=== PATIENT | male | born 1940 | race Caucasian/White ===

== ENCOUNTER → 2016-12-05 | Outpatient (CLI) | payer MEDICARE, OTHER ==
--- NOTE | 2016-12-05 09:09 | RAD ---
EXAM DESCRIPTION: XR PELVIS 1-2 VIEWS CLINICAL HISTORY: PAIN IN LEFT HIP COMPARISON: None Available. TECHNIQUE: AP pelvis FINDINGS: Minimal acetabular osteophyte formation is observed. A phlebolith is observed in the left side of the pelvis. No pelvic fracturing is observed. The proximal femurs are unremarkable. IMPRESSION: Minimal degenerative change is observed. Exam is essentially normal for age. Electronically signed by: Bobo Paulino MD 12/05/2016 09:08
--- NOTE | 2016-12-05 09:09 | RAD ---
EXAM DESCRIPTION: XR KNEE 4 OR MORE VIEWS CLINICAL HISTORY: PAIN IN LEFT KNEE COMPARISON: 30 November 2014. TECHNIQUE: Three views. FINDINGS: Marked loss of medial joint space is observed. 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 A small joint effusion is seen. No fracturing is detected. IMPRESSION: Degenerative changes are observed most pronounced in the medial joint compartment. The disease has progressed since the prior exam. Electronically signed by: Bobo Paulino MD 12/05/2016 09:08
== END ==
LOC: RAD 08:14
PROVIDERS: ATTEND Orthopaedic Surgery
DX: M25.562 Pain in left knee (principal); M25.552 Pain in left hip; M12.862 Other specific arthropathies, not elsewhere classified, left knee; M12.88 Other specific arthropathies, not elsewhere classified, other specified site

== ENCOUNTER → 2017-03-03 | Outpatient (CLI) | payer MEDICARE, OTHER | END | disposition home or self-care (01) | LOC: GMAB 14:42 | PROVIDERS: ATTEND Family Medicine | DX: N40.0 Benign prostatic hyperplasia without lower urinary tract symptoms (principal) ==

== ENCOUNTER → 2017-06-18 | Outpatient (CLI) | payer MEDICARE, OTHER | END | disposition home or self-care (01) | LOC: GMAB 10:48 | PROVIDERS: ATTEND Family Medicine | DX: Z12.5 Encounter for screening for malignant neoplasm of prostate (principal); R53.82 Chronic fatigue, unspecified; I10 Essential (primary) hypertension | CPT/HCPCS: 84403; 84443; 84550; G0103 ==

== ENCOUNTER → 2017-07-31 | Outpatient (CLI) | payer MEDICARE, OTHER | END | disposition home or self-care (01) | LOC: GMAB 10:58 | PROVIDERS: ATTEND Family Medicine | DX: R07.2 Precordial pain (principal) ==

== ENCOUNTER 2018-11-05 15:22 | Emergency (ER) | payer MEDICARE, OTHER ==
--- NOTE | 2018-11-05 15:45 | ED.PDOC ---
History of Present Illness - General Chief Complaint: Lower Extremity Injury Time Seen by Provider: 11/05/18 15:24 Source: patient Exam Limitations: no limitations - History of Present Illness Occurred: this morning Pain - Lower Extremity: mild: Left Knee Method of Injury: unknown Improving Factors: immobilization Worsening Factors: movement, other - WEIGHT BEARING Allergies/Adverse Reactions: Allergies Morphine Allergy (Verified 05/24/16 15:43) Vomitting Home Medications: Ambulatory Orders Atorvastatin Calcium [Lipitor] 40 mg PO BEDTIME 02/28/15 Enalapril Maleate 20 mg PO BID 02/28/15 Finasteride 5 mg PO DAILY 02/28/15 Metoprolol Succinate [Metoprolol Succinate ER] 50 mg PO DAILY 02/28/15 Tadalafil [Cialis] 5 mg PO DAILY 02/28/15 Alfuzosin HCl [Uroxatral] 10 mg PO DAILY 09/25/15 Aspirin [Aspirin EC] 81 mg PO DAILY 09/25/15 Colchicine [Colcrys] 0.6 mg PO DAILY PRN 09/25/15 Furosemide [Lasix] 20 mg PO DAILY PRN 09/25/15 Meloxicam [Mobic] 15 mg PO DAILY 09/25/15 Multiple Vitamins W/ Minerals [Multi For Him] 1 tab PO DAILY 09/25/15 Cambridge-3 Fatty Acids [Cambridge 3] 3 cap PO DAILY 09/25/15 Potassium Chloride [K-Tab] 10 meq PO DAILY PRN 09/25/15 cloNIDine HCL [Catapres] 0.1 mg PO BEDTIME 09/25/15 Cephalexin Monohydrate [Keflex] 500 mg PO QID #40 cap 05/24/16 Orphenadrine Citrate [Orphenadrine Citrate ER] 100 mg PO BID PRN #14 tab 11/05/18 Review of Systems - Review of Systems Constitutional: States: no symptoms reported EENTM: States: no symptoms reported Respiratory: Denies: cough, short of breath Cardiology: States: edema. Denies: chest pain Gastrointestinal/Abdominal: Denies: no symptoms reported Genitourinary: Denies: no symptoms reported Musculoskeletal: States: joint pain Skin: States: rash - has chronic rash to both lower legs distally. No erythema or tenderness Neurological: States: no symptoms reported Endocrine: States: no symptoms reported Hematologic/Lymphatic: States: no symptoms reported Past Medical History (General) - Patient Medical History Hx Stroke: No Hx Cardiac Disorders: Yes Hx Congestive Heart Failure: Yes Hx Hypertension: Yes Hx Diabetes: No Hx Cancer: No - Vaccination History Hx Tetanus, Diphtheria Vaccination: No Hx Influenza Vaccination: No Hx Pneumococcal Vaccination: No - Social History Hx Tobacco Use: No Hx Alcohol Use: Yes - Rarely Hx Substance Use: No Family Medical History - Family History Mother Family History: Unknown Living Status: Unknown Hx Family Cancer: Yes Physical Exam - Physical Exam General Appearance: Alert, No apparent distress Eyes, Ears, Nose, Throat: PERRL/EOMI Thigh/Hip: normal inspection, non-tender, normal ROM Leg: normal inspection, non-tender, normal ROM, swelling - 1 + edema to both distal legs Knee: normal inspection, normal ROM, soft tissue tenderness - popliteal fossa, minimal Ankle: normal inspection, non-tender, no evidence of injury Foot: normal inspection, non-tender, no evidence of injury Neuro/Tendon: normal sensation, normal motor functions Mental Status: alert, oriented x 3, depressed affect Skin: normal color, warm/dry, rash - eczemoid rash in patches distally in both lower legs Departure - Departure Clinical Impression: Hypovolemia dehydration Muscle strain of left lower leg Qualifiers: Encounter type: initial encounter Qualified Code(s): S86.912A - Strain of unspecified muscle(s) and tendon(s) at lower leg level, left leg, initial encounter Disposition: Discharge to Home or Self Care Condition: Fair Departure Forms: ED Discharge - Pt. Copy, Patient Portal Self Enrollment Instructions: DI for Leg Pain Referrals: OSIEL ANDREWS MD [Primary Care Provider] - 1-2 Weeks Prescriptions: Orphenadrine Citrate [Orphenadrine Citrate ER] 100 mg PO BID PRN #14 tab PRN Reason: Muscle Spasms Home Medications: Ambulatory Orders Atorvastatin Calcium [Lipitor] 40 mg PO BEDTIME 02/28/15 Enalapril Maleate 20 mg PO BID 02/28/15 Finasteride 5 mg PO DAILY 02/28/15 Metoprolol Succinate [Metoprolol Succinate ER] 50 mg PO DAILY 02/28/15 Tadalafil [Cialis] 5 mg PO DAILY 02/28/15 Alfuzosin HCl [Uroxatral] 10 mg PO DAILY 09/25/15 Aspirin [Aspirin EC] 81 mg PO DAILY 09/25/15 Colchicine [Colcrys] 0.6 mg PO DAILY PRN 09/25/15 Furosemide [Lasix] 20 mg PO DAILY PRN 09/25/15 Meloxicam [Mobic] 15 mg PO DAILY 09/25/15 Multiple Vitamins W/ Minerals [Multi For Him] 1 tab PO DAILY 09/25/15 Cambridge-3 Fatty Acids [Cambridge 3] 3 cap PO DAILY 09/25/15 Potassium Chloride [K-Tab] 10 meq PO DAILY PRN 09/25/15 cloNIDine HCL [Catapres] 0.1 mg PO BEDTIME 09/25/15 Cephalexin Monohydrate [Keflex] 500 mg PO QID #40 cap 05/24/16 Orphenadrine Citrate [Orphenadrine Citrate ER] 100 mg PO BID PRN #14 tab 11/05/18
[2018-11-05 15:54] VITALS: TEMP 99.5
[2018-11-05] MEDS ORDERED: SODIUM CHLORIDE 0.9% 1000ML 1,000 ML IVS ONE (16:30)
[2018-11-05 17:41] VITALS: BP 142/70; O2SAT 95
== END 2018-11-05 17:15 | disposition home or self-care (01) ==
LOC: ER 15:22
DX: S86.912A Strain of unspecified muscle(s) and tendon(s) at lower leg level, left leg, initial encounter (principal); E86.1 Hypovolemia; E86.0 Dehydration; I11.0 Hypertensive heart disease with heart failure; I50.9 Heart failure, unspecified; Z79.899 Other long term (current) drug therapy; Z79.82 Long term (current) use of aspirin; Z88.5 Allergy status to narcotic agent; X58.XXXA Exposure to other specified factors, initial encounter; Y92.9 Unspecified place or not applicable
CPT/HCPCS: 80053; 85025; J7030

== ENCOUNTER → 2019-06-21 | Outpatient (CLI) | payer MEDICARE, OTHER | LOC: LAB.O 10:00 | PROVIDERS: ATTEND Family Medicine | DX: Z00.00 Encounter for general adult medical examination without abnormal findings (principal); E78.5 Hyperlipidemia, unspecified; R53.83 Other fatigue; N40.1 Benign prostatic hyperplasia with lower urinary tract symptoms ==

== ENCOUNTER → 2020-01-17 | Outpatient (CLI) | payer MEDICARE, OTHER | DX: R06.02 Shortness of breath (principal); R06.09 Other forms of dyspnea; I10 Essential (primary) hypertension ==

== ENCOUNTER 2020-03-17 15:45 | Observation (INO) | payer MEDICARE, OTHER ==
[2020-03-17] MEDS ORDERED: SODIUM CHLORIDE 0.9% (FLUSH) 10 ML SYG IV PRN ×2 (15:49→23:05)
[2020-03-17] MEDS ORDERED: ASPIRIN (CHEWABLE) 81 MG TAB PO ONE ×2 (15:58→23:05)
--- NOTE | 2020-03-17 16:00 | ED.PDOC ---
History of Present Illness - General Chief Complaint: Chest Pain/NE Time Seen by Provider: 03/17/20 15:49 Source: patient - History of Present Illness Initial Comments: 79 yo male with PMH of HTN, CAD s/p stents who presents with cc of chest pain. Onset suddenly at home 45 mins ago at rest, located to right side of chest, "compression-like", constant, 4/10 severity at worst, radiated to Left arm, constant, slightly worse with exertion and little improvement at rest, accompanied by slight dyspnea. No meds tried for relief. Last NE was 1993, unsure if similar. Last had 3 stents 2 years ago at [facility] (Dr. Khan). Denies abd pain, n/v/d, diaphoresis, cough, fever, leg swelling. Currently pain is nearly fully resolved. Pt reports starting a course of prednisone 60 mg daily yesterday Rx'd by his PCP (Dr. Sargent) for knee pain. Allergies/Adverse Reactions: Allergies Morphine Allergy (Verified 03/17/20 16:07) Vomitting Home Medications: Ambulatory Orders Atorvastatin Calcium [Lipitor] 40 mg PO BEDTIME 02/28/15 Enalapril Maleate 20 mg PO BID 02/28/15 Finasteride 5 mg PO DAILY 02/28/15 Aspirin [Aspirin EC] 81 mg PO DAILY 09/25/15 Meloxicam [Mobic] 15 mg PO DAILYBK 09/25/15 Amlodipine Besylate 10 mg PO DAILY 03/17/20 Carvedilol [Coreg] 12.5 mg PO BID 03/17/20 Clopidogrel 75mg 75 mg PO DAILY 03/17/20 Famotidine [Pepcid Tab] 20 mg PO BID 03/17/20 Fluticasone Propionate (Nasal) [Fluticasone Propionate] 1 spray NA BEDTIME 03/17/20 Isosorbide Mononitrate [Isosorbide Mononitrate ER] 30 mg PO DAILY 03/17/20 Methylprednisolone [Medrol Dose Dung] 4 mg PO ACBK 03/17/20 Methylprednisolone [Medrol Dose Dung] 8 mg PO ONCE 03/17/20 Spironolactone 25 mg PO DAILY 03/17/20 hydrALAZINE HCl [(None)] 50 mg PO BID 03/17/20 Review of Systems - Review of Systems Review of Systems: 05/09/20 16:00 as per HPI All other Systems: Reviewed and Negative Past Medical History (General) - Patient Medical History Hx Stroke: No Hx Cardiac Disorders: Yes Hx Congestive Heart Failure: Yes Hx Hypertension: Yes Hx Diabetes: No Hx Cancer: No - Vaccination History Hx Tetanus, Diphtheria Vaccination: No Hx Influenza Vaccination: No Hx Pneumococcal Vaccination: No - Social History Hx Tobacco Use: No Hx Alcohol Use: Yes - Rarely Hx Substance Use: No Family Medical History - Family History Mother Family History: Unknown Living Status: Unknown Hx Family Cancer: Yes Father Family History: Unknown Living Status: Cause of : Cancer Physical Exam - Physical Exam General Appearance: Alert, Comfortable, No apparent distress Eye Exam: bilateral normal Ears, Nose, Throat: hearing grossly normal, normal ENT inspection, normal pharynx Neck: non-tender, full range of motion, supple, normal inspection Respiratory: chest non-tender, lungs clear, normal breath sounds, no respiratory distress, no accessory muscle use Cardiovascular/Chest: normal peripheral pulses, regular rate, rhythm, no edema, no gallop, no JVD, no murmur Peripheral Pulses: radial,right: 2+, radial,left: 2+ Gastrointestinal/Abdominal: non tender, soft, no organomegaly Back Exam: normal inspection, no CVA tenderness, no vertebral tenderness Extremity: normal range of motion, non-tender, normal inspection, no pedal edema, no calf tenderness Neurologic: lint cleaner II-XII nml as tested, no motor/sensory deficits, alert, normal mood/affect, oriented x 3 Skin Exam: normal color, warm/dry Progress - Progress Progress: 03/17/20 16:01 Chest pain -consider ACS, PNA, CHF, MSK, pleuritic, anxiety, hypertensive urgency, gallstones, other -obtain cardiac work-up, labs -place PIV, ASA 324 mg PO, if CP returns will give NTG 03/17/20 17:15 -Pt remains stable, no further CP. -Labs reveal WBC 17,000 with left shift but no bands, lactate 1.8. Suspect leukocytosis 2/2 recent steroid use. Blood cx's collected. Flu & strep neg. Trop <0.017. CXR w/o acute processes. -repeat EKG & trop 03/17/20 19:44 -Repeat EKG unchanged and trop remains <0.02 03/17/20 20:27 -Spoke with pt's PCP who is recommending cardiology consultation. Spoke with consult line for Dr. Zavala's practice. Awaiting call back. Pt remains stable. 03/17/20 21:02 -Spoke with welder production line [employer], Dr. Reginaldo Romero, who is with Dr. Zavala's group at [facility]. He advises since pt's chest pain has been resolved, pt is stable, and trop is neg x2 in ED, pt can be admitted for further observation here. Recommends loading with Plavix 300 mg x1 in ED and beginning 75 mg once daily. Advised hospitalist can call him or Dr. Zavala back tomorrow ([phone]) for further medication recommendations and for discharge planning with close outpatient f/u. Carmelo Escobar MD Billing #[id number] 03/17/20 15:49 Sodium Chloride 0.9% (Flush) [Saline Flush Syringe] 10 ml IV PRN PRN 03/17/20 16:00 EKG STAT 03/17/20 16:23 BLOOD CULTURE Stat STREP A SCREEN CULTURE Stat 03/17/20 17:45 EKG STAT 03/17/20 21:02 ED Intent to Admit Routine 03/18/20 09:00 Pulse Ox Daily Laboratory Results - last 24 hr 03/17/20 03/17/20 03/17/20 15:49 15:49 15:49 WBC 17.2 H RBC 4.76 Hgb 14.7 Hct 43.8 MCV 92.1 MCH 30.8 MCHC 33.5 RDW 14.9 H Plt Count 257 MPV 8.7 Absolute Neuts (auto) 15.40 H Absolute Lymphs (auto) 0.90 L Absolute Monos (auto) 0.90 H Absolute Eos (auto) 0.00 Absolute Basos (auto) 0.10 Neutrophils % 89.4 H Lymphocytes % 5.1 L Monocytes % 4.9 Eosinophils % 0.0 L Basophils % 0.6 Sodium 137 Potassium 4.3 Chloride 108 Carbon Dioxide 20 L Anion Gap 13.3 BUN 38 H Creatinine 1.43 H BUN/Creatinine Ratio 26.6 H Random Glucose 147 H Serum Osmolality 285.6 Lactic Acid Calcium 9.4 Total Bilirubin 0.9 AST 19 ALT 22 Alkaline Phosphatase 52 Troponin I < 0.02 B-Natriuretic Peptide 128.0 H Serum Total Protein 7.3 Albumin 4.1 Globulin 3.2 Albumin/Globulin Ratio 1.3 Urine Color Urine Appearance Urine pH Ur Specific [place] Urine Protein Urine Glucose (UA) Urine Ketones Urine Blood Urine Nitrite Urine Bilirubin Urine Urobilinogen Ur Leukocyte Esterase Urine RBC Urine WBC Ur Epithelial Cells Urine Bacteria Group A Strep Rapid 03/17/20 03/17/20 03/17/20 16:23 16:23 17:19 WBC RBC Hgb Hct MCV MCH MCHC RDW Plt Count MPV Absolute Neuts (auto) Absolute Lymphs (auto) Absolute Monos (auto) Absolute Eos (auto) Absolute Basos (auto) Neutrophils % Lymphocytes % Monocytes % Eosinophils % Basophils % Sodium Potassium Chloride Carbon Dioxide Anion Gap BUN Creatinine BUN/Creatinine Ratio Random Glucose Serum Osmolality Lactic Acid 1.8 Calcium Total Bilirubin AST ALT Alkaline Phosphatase Troponin I B-Natriuretic Peptide Serum Total Protein Albumin Globulin Albumin/Globulin Ratio Urine Color Yellow Urine Appearance Clear Urine pH 5.5 Ur Specific [place] 1.025 Urine Protein Negative Urine Glucose (UA) Negative Urine Ketones Trace Urine Blood Negative Urine Nitrite Negative Urine Bilirubin Negative Urine Urobilinogen 0.2 Ur Leukocyte Esterase Negative Urine RBC 0 Urine WBC 0 Ur Epithelial Cells 0 Urine Bacteria 0 Group A Strep Rapid Negative 03/17/20 17:45 WBC RBC Hgb Hct MCV MCH MCHC RDW Plt Count MPV Absolute Neuts (auto) Absolute Lymphs (auto) Absolute Monos (auto) Absolute Eos (auto) Absolute Basos (auto) Neutrophils % Lymphocytes % Monocytes % Eosinophils % Basophils % Sodium Potassium Chloride Carbon Dioxide Anion Gap BUN Creatinine BUN/Creatinine Ratio Random Glucose Serum Osmolality Lactic Acid Calcium Total Bilirubin AST ALT Alkaline Phosphatase Troponin I < 0.02 B-Natriuretic Peptide Serum Total Protein Albumin Globulin Albumin/Globulin Ratio Urine Color Urine Appearance Urine pH Ur Specific [place] Urine Protein Urine Glucose (UA) Urine Ketones Urine Blood Urine Nitrite Urine Bilirubin Urine Urobilinogen Ur Leukocyte Esterase Urine RBC Urine WBC Ur Epithelial Cells Urine Bacteria Group A Strep Rapid 03/18/20 01:36 - EKG/XRAY/CT EKG: Sinus - NSR with RBBB and Left anterior fascicular block, no ST elevs noted, L axis deviation present, QTc wnl, unchanged from 09/25/15 EKG - Additional EKG/XRAY/Consults EKG #2: Unchanged from - initial Departure - Departure Clinical Impression: Chest pain Qualifiers: Chest pain type: unspecified Qualified Code(s): R07.9 - Chest pain, unspecified Time of Disposition: 21:01 Disposition: Admit Patient Condition: Fair Home Medications: Ambulatory Orders Atorvastatin Calcium [Lipitor] 40 mg PO BEDTIME 02/28/15 Enalapril Maleate 20 mg PO BID 02/28/15 Finasteride 5 mg PO DAILY 02/28/15 Aspirin [Aspirin EC] 81 mg PO DAILY 09/25/15 Meloxicam [Mobic] 15 mg PO DAILYBK 09/25/15 Amlodipine Besylate 10 mg PO DAILY 03/17/20 Carvedilol [Coreg] 12.5 mg PO BID 03/17/20 Clopidogrel 75mg 75 mg PO DAILY 03/17/20 Famotidine [Pepcid Tab] 20 mg PO BID 03/17/20 Fluticasone Propionate (Nasal) [Fluticasone Propionate] 1 spray NA BEDTIME 03/17/20 Isosorbide Mononitrate [Isosorbide Mononitrate ER] 30 mg PO DAILY 03/17/20 Methylprednisolone [Medrol Dose Dung] 4 mg PO ACBK 03/17/20 Methylprednisolone [Medrol Dose Dung] 8 mg PO ONCE 03/17/20 Spironolactone 25 mg PO DAILY 03/17/20 hydrALAZINE HCl [(None)] 50 mg PO BID 03/17/20 Decision To Admit - Decistion To Admit Decision to Admit Reason: Admit from ER Decision to Admit Date: 03/17/20 Decision to Admit Time: 21:02
--- NOTE | 2020-03-17 17:03 | RAD ---
PROCEDURE: XR Chest, 1 View CLINICAL INDICATION: The patient is 79 years old and is Male; chest pain MAIN TECHNIQUE: Frontal view of the chest. COMPARISON: 01/17/2020 FINDINGS: LUNGS: There is mild pulmonary vascular congestion. There are low lung volumes noted. PLEURAL SPACE: There is no pneumothorax. There are no pleural effusions noted. HEART: The heart size is enlarged. MEDIASTINUM: The mediastinal contour is normal. RIGHT hemidiaphragm is elevated. BONES/JOINTS: Old healed fractures of the RIGHT lateral ribs. There are degenerative changes of the spine identified. VASCULATURE: The aorta is uncoiled. TUBES, LINES AND DEVICES: There are electrocardiogram leads present. IMPRESSION: There is mild pulmonary vascular congestion. Electronically signed by: John Servin MD 03/17/2020 5:01 PM CDT
[2020-03-17] MEDS ORDERED: CLOPIDOGREL 75 MG TAB PO ONE (21:04)
[2020-03-17] MEDS ORDERED: NITROGLYCERIN 0.4 MG 25 EA TAB SL PRN (23:05)
[2020-03-17] MEDS ORDERED: ACETAMINOPHEN 325 MG TAB PO PRN (23:05)
[2020-03-17] MEDS ORDERED: MORPHINE SULFATE INJ 10 MG/ML VIAL IV PRN (23:05)
[2020-03-17] MEDS ORDERED: NON-FORMULARY MEDICATION 1 EA MIS (Enalapril Maleate [Enalapril Maleate] 20 MG) PO SCH (23:15)
[2020-03-17] MEDS: CARVEDILOL 12.5 MG TAB PO SCH (23:21)
[2020-03-17] MEDS: FAMOTIDINE 20 MG TAB PO SCH (23:21)
[2020-03-17] MEDS ORDERED: methylPREDNISolone TAB 4 MG TAB PO SCH (23:30)
[2020-03-17] MEDS ORDERED: IV SET AND CAP CHANGE INJ INJ SCH (23:30)
[2020-03-18 06:05] VITALS: O2SAT 96
[2020-03-18] MEDS ORDERED: methylPREDNISolone TAB 4 MG TAB PO SCH (07:00)
[2020-03-18] MEDS ORDERED: MELOXICAM 7.5 MG TAB ONE (07:21)
[2020-03-18] MEDS ORDERED: amLODIPine BESYLATE 5 MG TAB ONE (07:21)
[2020-03-18] MEDS ORDERED: MELOXICAM 7.5 MG TAB PO SCH (07:30)
[2020-03-18] MEDS ORDERED: amLODIPine BESYLATE 5 MG TAB PO SCH (09:00)
[2020-03-18] MEDS ORDERED: CLOPIDOGREL 75 MG TAB PO SCH ×2 (09:00)
[2020-03-18] MEDS ORDERED: ISOSORBIDE MONONITRATE (IMDUR) 30 MG TAB PO SCH (09:00)
[2020-03-18] MEDS ORDERED: SODIUM CHLORIDE 0.9% (FLUSH) 10 ML SYG IV SCH (09:00)
[2020-03-18] MEDS ORDERED: ASPIRIN (ENTERIC COATED) 81 MG TAB PO SCH (09:00)
[2020-03-18] MEDS ORDERED: ASPIRIN TABLET 325 MG TAB PO SCH (09:00)
[2020-03-18] MEDS ORDERED: FINASTERIDE 5 MG TAB PO SCH (09:00)
[2020-03-18] MEDS ORDERED: ENALAPRIL MALEATE 5 MG TAB PO SCH (09:00)
[2020-03-18] MEDS ORDERED: SPIRONOLACTONE 25 MG TAB PO SCH (09:00)
[2020-03-18] MEDS: CARVEDILOL 12.5 MG TAB PO SCH (09:14)
[2020-03-18] MEDS: FAMOTIDINE 20 MG TAB PO SCH (09:15)
[2020-03-18 10:18] VITALS: BP 127/76; TEMP 97.6
[2020-03-18] MEDS ORDERED: methylPREDNISolone TAB 4 MG TAB PO ONE (13:00)
[2020-03-18] MEDS ORDERED: FLUTICASONE PROP 0.05% NASAL 16 GM BTTL BNAS SCH (21:00)
[2020-03-18] MEDS ORDERED: ATORVASTATIN 20 MG TAB PO SCH (21:00)
--- NOTE | 2020-03-19 08:55 | SSS ---
SUPERVISING PHYSICIAN: Austyn Garcia MD DATE OF ADMISSION: 03/17/20 DATE OF DISCHARGE: 03/18/20 ADMISSION DIAGNOSIS: 1. Chest pain, right side, at rest with extensive cardiac history with previous stent placement in 2001. 2. History of hypertension. 3. Benign prostatic hypertrophy. DISCHARGE DIAGNOSIS: 1. Right sided chest pains without any evidence of acute coronary syndrome with EKGs showing no acute changes, troponins all less than 0.02, and the patient not having any recurrence of chest pain. 2. Controlled hypertension, chronic. 3. Benign prostatic hypertrophy on Flomax. CHIEF COMPLAINT: Right sided chest pain. HISTORY OF PRESENT ILLNESS: Mr. Royal is a 79-year-old male patient with a past medical history of hypertension, cardiovascular disease status post stents. He presented to the Emergency Room yesterday afternoon complaining of right sided chest pain. It was sudden onset and lasted about 45 minutes while at rest. He states it is compression-like, constant, about 4/10 in severity at the worst which radiated to his left arm. When he arrived at the Emergency Room, his pain essentially was gone without any intervention. He does have a remote history of stents placed two years previous, three he believes, by Dr. Zavala in [place]. He was recently started on prednisone tapering pack by Dr. Sargent for knee pain. On presentation to the Emergency Room, his vital signs showed he was afebrile with temperature 98, pulse 79, blood pressure a little elevated at 181/85, respirations 18, saturation 98% on room air. Again, he was without any chest pains on presentation, but given his past medical history, further workup was continued. He did show a white count of 17,200, but he had been on prednisone for three days. Chemistries showed a slightly elevated creatinine at 1.43, but his troponins were less than 0.02 times 2. Liver functions were all within normal limits. Urinalysis was without any significant findings as well as rapid Strep test was negative. Chest x-ray in the Emergency Room showed some mild pulmonary vascular congestion, however, within normal limits per radiologic interpretation. Dr. Escobar, the ER physician, was able to contact the cardiology group that the patient had seen in the past two years and talked to Dr. Romero who based on the EKG findings that were unchanged from previous, showed no ST or T wave changes as well as troponins being less than 0.02 and he was pain-free, recommended the patient could be observed here for followup in the outpatient setting and did recommend loading with Plavix 300 mg and then continue with 75 mg daily. Mr. Royal was placed in observation for stable condition for chest pain rule out. PAST MEDICAL HISTORY: 1. Previous myocardial infarction in 2018 with three stents placed. 2. Hypertension. 3. Benign prostatic hypertrophy. PAST SURGICAL HISTORY: 1. Hernia repair. 2. Cardiac stent placement in 2018. HOME MEDICATIONS: 1. Pepcid. 2. Nasacort. 3. Coreg. 4. Enalapril. 5. Isosorbide mononitrate extended release. 6. Flomax. 7. Hydralazine. 8. Mobic. 9. Lipitor. 10. Amlodipine. 11. Aspirin. 12. Spironolactone. ALLERGIES: MORPHINE. FAMILY HISTORY: Father at age 78 due to cardiovascular disease. Mother in her late 90s of natural causes. He has one brother who is healthy. SOCIAL HISTORY: The patient currently works in the [employer]. He is and lives in [place], [place]. He drinks alcohol on very rare occasion and has never smoked tobacco. REVIEW OF SYSTEMS: GENERAL: Negative for fever, fatigue, general malaise or weight changes. HEENT: Negative for headaches, nasal congestion, vision changes or sore throat. RESPIRATORY: Negative for wheezing, coughing or shortness of breath. CARDIAC: As noted in history of present illness, right sided chest pain. Denies any syncopal episodes, palpitations. GASTROINTESTINAL: Negative for nausea, vomiting, diarrhea, constipation or abdominal pain. GENITOURINARY: Negative for hematuria, dysuria or polyuria. MUSCULOSKELETAL: Bilateral knee pain currently on prednisone taper pack. SKIN: Negative for lesions, rashes, moles or unexplained changes. NEUROLOGIC: Negative for headache, vision changes, syncopal episodes, ataxia, seizures or other neurologic deficits. HEMATOLOGIC: Negative for unexplained bleeding, bruising or transfusion reactions. PHYSICAL EXAMINATION: VITAL SIGNS: At time of discharge, temperature 98, pulse 58, blood pressure 129/69, respirations 18, saturation 96% on room air. GENERAL: The patient was resting comfortably and did not appear to be in any acute distress. HEENT: Tympanic membranes clear bilaterally. Oropharynx is pink, moist without any lesions. NECK: Supple, nontender with full range of motion. No jugular venous distention noted. RESPIRATORY: Lung sounds are clear to auscultation bilaterally without any rhonchi, wheezes or rales. CARDIOVASCULAR: Regular rate and rhythm without any appreciable murmurs, gallops, or rubs. ABDOMEN: Soft, nontender. Positive bowel sounds. EXTREMITIES: There is no cyanosis, clubbing or edema. NEUROLOGIC: Cranial nerves II-XII are grossly intact. The patient is alert and oriented times three. SKIN: Warm, pink and dry. LABORATORY: White count did show a leukocytosis of 17,000, but he was on prednisone tapering pack. Hemoglobin 14.7, hematocrit 43.8, platelet count 257,000, differential showed slight left shift. Chemistries showed normal electrolytes on discharge with BUN 39, creation 1.35, normal lactic acid at 1.8, calcium 8.9. Liver functions all within normal limits. Troponins times 3 were less than 0.02. Urinalysis within normal limits. Group A Strep was negative. MICROBIOLOGY: Influenza A and B by PCR was negative. Blood cultures were negative at discharge. Group A strep culture was pending. RADIOLOGY: Chest x-ray per radiologic interpretation just showed vascular congestion. HOSPITAL COURSE: Mr. Royal was admitted from the Emergency Room for chest pain rule out. He was pain free actually prior to admission to the ER. His EKG showed no acute changes compared to previous EKGs. Consultation with his resident assistant cna by the ER physician with recommendation the patient be admitted. While admitted overnight on telemetry, he had no recurrence of any chest pains, no acute changes on EKG. All his troponins were less than 0.02. He was loaded on Plavix 300 mg prior to admission to the Medical/Surgical Floor. It was felt he was stable both hemodynamically and clinically to continue with outpatient management. PLAN: Mr. Royal is discharged after observation for rule out chest pain. He is to followup with his resident assistant cna in [place] as well as Dr. Sargent within the next 7 to 10 days. He was to resume his previous medications. He was given a loading dose of Plavix in the ER and that was continued at discharge at 75 mg daily. No other medications were administered at discharge. Diet was low-fat, low-cholesterol diet. Activity to increase as tolerated. CONDITION ON DISCHARGE: Stable and improved. DISPOSITION: The patient was discharged home. MEDICATIONS PRESCRIBE ON DISCHARGE: 1. Plavix 75 mg daily, #30, no refills. #[id number] [facility]
== END 2020-03-18 11:25 | disposition home or self-care (01) ==
LOC: ER 15:45 → MS 21:33
PROVIDERS: ADMIT Nurse Practitioner Family; ATTEND Nurse Practitioner Family
DX: R07.89 Other chest pain (principal); R06.00 Dyspnea, unspecified; I11.0 Hypertensive heart disease with heart failure; I50.9 Heart failure, unspecified; N40.0 Benign prostatic hyperplasia without lower urinary tract symptoms; I45.2 Bifascicular block; I25.10 Atherosclerotic heart disease of native coronary artery without angina pectoris; I25.2 Old myocardial infarction; Z95.5 Presence of coronary angioplasty implant and graft; Z79.02 Long term (current) use of antithrombotics/antiplatelets; Z79.82 Long term (current) use of aspirin; Z79.1 Long term (current) use of non-steroidal anti-inflammatories (NSAID); Z79.899 Other long term (current) drug therapy; Z88.6 Allergy status to analgesic agent; Z82.49 Family history of ischemic heart disease and other diseases of the circulatory system

== ENCOUNTER → 2020-04-13 | Outpatient (CLI) | payer MEDICARE, OTHER ==
--- NOTE | 2020-04-13 08:47 | RAD ---
EXAM DESCRIPTION: Pelvis x-ray one view CLINICAL HISTORY: 79 years Male, PAIN IN LEFT HIP COMPARISON: Previous x-ray pelvis December 05, 2016 FINDINGS: Single frontal x-ray view of the pelvis shows mild degenerative spurring at the acetabular margins bilaterally. No hip dislocation or fracture. Intact proximal femurs. Bones of the pelvic ring appear intact. Degenerative disc disease in lower lumbar spine. Sacrum appears intact. Degenerative narrowing of the SI joints. Few phleboliths in the pelvis. IMPRESSION: Negative for fracture or dislocation. Electronically signed by: Jatinder Ronquillo MD 04/13/2020 8:46 AM CDT
--- NOTE | 2020-04-13 08:47 | RAD ---
EXAM DESCRIPTION: Knee,Left Complete CLINICAL HISTORY: PAIN IN LEFT KNEE COMPARISON: December 05, 2016 IMPRESSION: 3 standing views of the left knee again demonstrate severe narrowing of the medial tibiofemoral compartment with flattening of the weightbearing articular surface and surrounding sclerotic changes most compatible with severe advanced osteoarthritic changes. Mild medial joint line osteophytes are seen. No acute fracture or dislocation. Posterior superior and inferior osteophytes of the patella are seen with narrowing of the patellofemoral compartment and moderate osteoarthritic changes similar to previous. Soft tissues show mild vascular calcifications. No significant joint effusion. Electronically signed by: Luis Baldwin MD 04/13/2020 8:45 AM CDT
== END ==
LOC: RAD 07:28
PROVIDERS: ATTEND Orthopaedic Surgery
DX: M17.12 Unilateral primary osteoarthritis, left knee (principal); M25.762 Osteophyte, left knee; M79.9 Soft tissue disorder, unspecified; M25.552 Pain in left hip

== ENCOUNTER 2020-06-30 15:29 | Emergency (ER) | payer MEDICARE, OTHER ==
[2020-06-30] MEDS ORDERED: SODIUM CHLORIDE 0.9% (FLUSH) 10 ML SYG IV PRN (15:45)
--- NOTE | 2020-06-30 15:47 | ED.PDOC ---
History of Present Illness - General Chief Complaint: Fever Stated Complaint: fever,chills,upset stomach Time Seen by Provider: 06/30/20 15:44 Source: patient - History of Present Illness Initial Comments: 79 yo male with PMH of HTN who presents with cc of fevers and nausea. Onset of illness 2 days ago and gradually worsening. Fevers began today with T-max of 101 Fahrenheit at home. Patient reports he has been feeling nauseous but has not had any vomiting. Reports moderate severity illness, no medications taken for relief, no known exacerbating factors. Reports taking fluids okay but otherwise poor appetite. No known recent sick contacts. Denies any sore throat, cough, chest pain, dyspnea, abdominal pain, diarrhea, urinary symptoms. Denies any recent COVID-19 contacts. Allergies/Adverse Reactions: Allergies Morphine Allergy (Verified 03/17/20 16:07) Vomitting Home Medications: Ambulatory Orders Atorvastatin Calcium [Lipitor] 40 mg PO BEDTIME 02/28/15 Enalapril Maleate 20 mg PO BID 02/28/15 Finasteride 5 mg PO DAILY 02/28/15 Aspirin [Aspirin EC] 81 mg PO DAILY 09/25/15 Meloxicam [Mobic] 15 mg PO DAILYBK 09/25/15 Amlodipine Besylate 10 mg PO DAILY 03/17/20 Carvedilol [Coreg] 12.5 mg PO BID 03/17/20 Famotidine [Pepcid] 20 mg PO BID 03/17/20 Fluticasone Propionate (Nasal) [Fluticasone Propionate] 1 spray NA BEDTIME 03/17/20 Isosorbide Mononitrate [Isosorbide Mononitrate ER] 30 mg PO DAILY 03/17/20 Methylprednisolone [Medrol Dose Dung] 4 mg PO ACBK 03/17/20 Methylprednisolone [Medrol Dose Dung] 8 mg PO ONCE 03/17/20 Spironolactone 25 mg PO DAILY 03/17/20 hydrALAZINE HCl [HydrALAzine HCl] 50 mg PO BID 03/17/20 Clopidogrel Bisulfate [Plavix] 75 mg PO QD #30 tab 03/18/20 Ondansetron Odt [Zofran ODT] 8 mg PO Q8H PRN 5 Days #10 tab 06/30/20 Review of Systems - Review of Systems Review of Systems: 06/30/20 17:43 As per HPI All other Systems: Reviewed and Negative Past Medical History (General) - Patient Medical History Hx Seizures: No Hx Stroke: No Hx Asthma: No Hx of COPD: No Hx Cardiac Disorders: Yes Hx Congestive Heart Failure: Yes Hx Pacemaker: No Hx Hypertension: Yes Hx Diabetes: No Hx Cancer: No Hx MRSA: No - Vaccination History Hx Tetanus, Diphtheria Vaccination: No Hx Influenza Vaccination: No Hx Pneumococcal Vaccination: No - Social History Hx Tobacco Use: No Hx Alcohol Use: Yes - Rarely Hx Substance Use: No Hx Substance Use Treatment: No Hx Depression: No Hx Physical Abuse: No Hx Emotional Abuse: No - Female History Patient : No Family Medical History - Family History Mother Family History: Unknown Living Status: Unknown Hx Family Cancer: Yes Father Family History: Unknown Living Status: Cause of : Cancer Physical Exam - Physical Exam General Appearance: Alert, Comfortable, No apparent distress Eye Exam: bilateral normal Ears, Nose, Throat: hearing grossly normal, normal ENT inspection, normal p harynx Neck: non-tender, full range of motion, supple, normal inspection Respiratory: lungs clear, normal breath sounds, no respiratory distress, no a ccessory muscle use Cardiovascular/Chest: normal peripheral pulses, regular rate, rhythm, no edema, no gallop, no JVD, no murmur Peripheral Pulses: radial,right: 2+, radial,left: 2+ Gastrointestinal/Abdominal: non tender, soft, no organomegaly Back Exam: normal inspection, no CVA tenderness, no vertebral tenderness Extremity: normal range of motion, non-tender, normal inspection, no pedal edema, no calf tenderness, normal capillary refill Neurologic: lvn II-XII nml as tested, no motor/sensory deficits, alert, normal mood/affect, oriented x 3 Skin Exam: normal color, warm/dry Progress - Progress Progress: 06/30/20 16:44 Acute febrile illness -Suspect acute viral gastroenteritis. Consider also strep throat, pneumonia, COVID-19, UTI, other -Patient stable, comfortable, no distress in the ED -Obtain blood work, strep test, COVID-19 test -1 L normal saline bolus, Zofran 4 mg IV 06/30/20 17:45 -Strep test is positive. Remainder of lab work is largely unremarkable. Discussed diagnosis of acute gastroenteritis strep pharyngitis. Will treat strep throat with Bicillin 1,200,000 units IM in the ED. Will send home with Zofran prescription. Advised close follow-up with PCP. Discharged home in good condition, return warnings discussed at length. Carmelo Escobar MD Billing #[id number] 06/30/20 15:45 Telemetry .ONCE Sodium Chloride 0.9% (Flush) [Saline Flush Syringe] 10 ml IV PRN PRN 06/30/20 15:46 URINALYSIS Stat 06/30/20 16:00 RESPIRATORY PANEL 2 Stat 07/01/20 09:00 Pulse Ox Daily Laboratory Results - last 24 hr 06/30/20 06/30/20 06/30/20 15:50 15:50 15:50 WBC 8.4 RBC 4.73 Hgb 14.7 Hct 43.0 MCV 91.0 MCH 31.2 H MCHC 34.2 RDW 14.1 Plt Count 225 MPV 8.6 Absolute Neuts (auto) 6.90 H Absolute Lymphs (auto) 0.50 L Absolute Monos (auto) 0.80 Absolute Eos (auto) 0.00 Absolute Basos (auto) 0.00 Neutrophils % 82.5 H Lymphocytes % 6.3 L Monocytes % 10.1 H Eosinophils % 0.6 L Basophils % 0.5 Sodium 138 Potassium 3.9 Chloride 108 Carbon Dioxide 21 Anion Gap 12.9 BUN 18 Creatinine 1.32 H BUN/Creatinine Ratio 13.6 Random Glucose 103 Serum Osmolality 277.8 Lactic Acid 1.1 Calcium 9.0 Total Bilirubin 1.1 H AST 18 ALT 17 Alkaline Phosphatase 71 Troponin I B-Natriuretic Peptide 24.8 Serum Total Protein 6.6 Albumin 3.9 Globulin 2.7 Albumin/Globulin Ratio 1.4 Lipase Group A Strep Rapid 06/30/20 06/30/20 06/30/20 15:50 15:50 16:00 WBC RBC Hgb Hct MCV MCH MCHC RDW Plt Count MPV Absolute Neuts (auto) Absolute Lymphs (auto) Absolute Monos (auto) Absolute Eos (auto) Absolute Basos (auto) Neutrophils % Lymphocytes % Monocytes % Eosinophils % Basophils % Sodium Potassium Chloride Carbon Dioxide Anion Gap BUN Creatinine BUN/Creatinine Ratio Random Glucose Serum Osmolality Lactic Acid Calcium Total Bilirubin AST ALT Alkaline Phosphatase Troponin I < 0.02 B-Natriuretic Peptide Serum Total Protein Albumin Globulin Albumin/Globulin Ratio Lipase 26 Group A Strep Rapid Positive H Departure - Departure Clinical Impression: Strep pharyngitis, Gastroenteritis Time of Disposition: 17:39 Disposition: Discharge to Home or Self Care Condition: Good Departure Forms: ED Discharge - Pt. Copy, Patient Portal Self Enrollment Instructions: Viral Gastroenteritis, Adult (DC) Diet: resume usual diet Activity: increase activity as tolerated Referrals: Pernell Sargent MD [Primary Care Provider] - 1-2 Weeks Prescriptions: Ondansetron Odt [Zofran ODT] 8 mg PO Q8H PRN 5 Days #10 tab PRN Reason: Nausea Home Medications: Ambulatory Orders Atorvastatin Calcium [Lipitor] 40 mg PO BEDTIME 02/28/15 Enalapril Maleate 20 mg PO BID 02/28/15 Finasteride 5 mg PO DAILY 02/28/15 Aspirin [Aspirin EC] 81 mg PO DAILY 09/25/15 Meloxicam [Mobic] 15 mg PO DAILYBK 09/25/15 Amlodipine Besylate 10 mg PO DAILY 03/17/20 Carvedilol [Coreg] 12.5 mg PO BID 03/17/20 Famotidine [Pepcid] 20 mg PO BID 03/17/20 Fluticasone Propionate (Nasal) [Fluticasone Propionate] 1 spray NA BEDTIME 03/17/20 Isosorbide Mononitrate [Isosorbide Mononitrate ER] 30 mg PO DAILY 03/17/20 Methylprednisolone [Medrol Dose Dung] 4 mg PO ACBK 03/17/20 Methylprednisolone [Medrol Dose Dung] 8 mg PO ONCE 03/17/20 Spironolactone 25 mg PO DAILY 03/17/20 hydrALAZINE HCl [HydrALAzine HCl] 50 mg PO BID 03/17/20 Clopidogrel Bisulfate [Plavix] 75 mg PO QD #30 tab 03/18/20 Ondansetron Odt [Zofran ODT] 8 mg PO Q8H PRN 5 Days #10 tab 06/30/20 Additional Instructions: Remain well-hydrated and gradually advance your diet and activity level as tolerated. You may take the Zofran as directed for nausea. Return to the ED if you develop any worsening or concerning symptoms such as chest pain, abdominal pain, shortness of breath, bloody vomiting or stools, intractable nausea and vomiting, large volume or frequent diarrhea (more than 10/day), etc. Follow-up with your primary care doctor is recommended in the next 1 to 2 weeks or sooner as needed.
--- NOTE | 2020-06-30 16:33 | RAD ---
EXAM DESCRIPTION: XR Chest, one view CLINICAL HISTORY: Fever COMPARISON: March 17, 2020 FINDINGS: The heart is normal in size. The pulmonary vascularity is normal. Tortuous descending thoracic aorta is noted. The lungs are clear. No dense focal consolidation is seen. No pneumothorax or pleural effusion is seen. The osseous structures appear unremarkable. IMPRESSION: No acute cardiopulmonary process. Electronically signed by: Dawna Parham MD 06/30/2020 4:32 PM CDT
[2020-06-30] MEDS ORDERED: fentaNYL CITRATE INJ 50 MCG/ML AMP IV ONE (17:00)
[2020-06-30] MEDS ORDERED: PENICILLIN BENZATHINE 1.2 MU 1.2 MU/2 ML SYG IM ONE (17:26)
[2020-06-30 18:08] VITALS: BP 131/59; TEMP 99.4; O2SAT 95
== END 2020-06-30 18:08 | disposition home or self-care (01) ==
LOC: ER 15:29
DX: J02.0 Streptococcal pharyngitis (principal); K52.9 Noninfective gastroenteritis and colitis, unspecified; I50.9 Heart failure, unspecified; I11.0 Hypertensive heart disease with heart failure; Z20.828 Contact with and (suspected) exposure to other viral communicable diseases; Z79.82 Long term (current) use of aspirin; Z79.899 Other long term (current) drug therapy; Z79.02 Long term (current) use of antithrombotics/antiplatelets; Z88.5 Allergy status to narcotic agent
CPT/HCPCS: 36415; 71045; 80053; 83605; 83690; 83880; 84484; 85025; 87635; 87880; 94760; J0561

== ENCOUNTER → 2020-10-29 | Outpatient (CLI) | payer MEDICARE, OTHER | LOC: YCFC.O 08:08 | PROVIDERS: ATTEND Family Medicine | DX: I10 Essential (primary) hypertension (principal); N40.1 Benign prostatic hyperplasia with lower urinary tract symptoms; Z13.220 Encounter for screening for lipoid disorders; R53.83 Other fatigue ==

== ENCOUNTER → 2020-11-07 | Outpatient (CLI) | payer MEDICARE, OTHER | LOC: YCFC.O 15:15 | PROVIDERS: ATTEND Family Medicine | DX: Z20.828 Contact with and (suspected) exposure to other viral communicable diseases (principal) ==

== ENCOUNTER 2020-11-19 09:15 | Emergency (ER) | payer MEDICARE, OTHER ==
--- NOTE | 2020-11-19 10:16 | ED.PDOC ---
History of Present Illness - General Chief Complaint: General Stated Complaint: COVID + Time Seen by Provider: 11/19/20 09:32 Source: family, RN/MD Exam Limitations: no limitations Additional Information: Family reported to PCP difficulty getting to the bathroom - History of Present Illness Initial Comments: Sent in for eval by PCP Dr. Sargent. + COVID test 12 days ago with IV monoclonal antibody infusion given. Timing/Duration: 1 week, constant Severity: mild Improving Factors: nothing Worsening Factors: nothing Associated Symptoms: headaches - Mild, loss of appetite, nausea/vomiting - Nausea wo/ vomiting, shortness of breath, weakness - General Allergies/Adverse Reactions: Allergies Morphine Allergy (Verified 11/19/20 10:03) Vomitting Home Medications: Ambulatory Orders Atorvastatin Calcium [Lipitor] 40 mg PO BEDTIME 02/28/15 Enalapril Maleate 20 mg PO BID 02/28/15 Finasteride 5 mg PO DAILY 02/28/15 Aspirin [Aspirin EC] 81 mg PO DAILY 09/25/15 Meloxicam [Mobic] 15 mg PO DAILYBK 09/25/15 Amlodipine Besylate 10 mg PO DAILY 03/17/20 Carvedilol [Coreg] 12.5 mg PO BID 03/17/20 Famotidine [Pepcid] 20 mg PO BID 03/17/20 Fluticasone Propionate (Nasal) [Fluticasone Propionate] 1 spray NA BEDTIME 03/17/20 Isosorbide Mononitrate [Isosorbide Mononitrate ER] 30 mg PO DAILY 03/17/20 Methylprednisolone [Medrol Dose Dung] 4 mg PO ACBK 03/17/20 Methylprednisolone [Medrol Dose Dung] 8 mg PO ONCE 03/17/20 Spironolactone 25 mg PO DAILY 03/17/20 hydrALAZINE HCl [HydrALAzine HCl] 50 mg PO BID 03/17/20 Clopidogrel Bisulfate [Plavix] 75 mg PO QD #30 tab 03/18/20 Ondansetron Odt [Zofran ODT] 8 mg PO Q8H PRN 5 Days #10 tab 06/30/20 Azithromycin [Zithromax Z-Dung] 250 mg PO DAILY 5 Days #6 tab MDD 500 11/19/20 Meclizine HCl [Meclizine 25] 25 mg PO Q8HR PRN 10 Days #30 tab MDD 75 mg 11/19/20 Prednisone 20 mg PO DAILY 5 Days #15 tab MDD 60mg 11/19/20 Review of Systems - Review of Systems Constitutional: States: see HPI EENTM: States: other - Loss of smell & taste Respiratory: States: see HPI Cardiology: Denies: chest pain, edema, syncope Gastrointestinal/Abdominal: States: see HPI Genitourinary: States: no symptoms reported Musculoskeletal: States: other - No leg pain or selling Skin: Denies: rash Neurological: States: see HPI, other - No CVA sx Endocrine: States: no symptoms reported Hematologic/Lymphatic: States: no symptoms reported Past Medical History (General) - Patient Medical History Hx Seizures: No Hx Stroke: No Hx Asthma: No Hx of COPD: No Hx Cardiac Disorders: Yes Hx Congestive Heart Failure: Yes Hx Pacemaker: No Hx Hypertension: Yes Hx Diabetes: No Hx Cancer: No Hx MRSA: No - Vaccination History Hx Tetanus, Diphtheria Vaccination: No Hx Influenza Vaccination: No Hx Pneumococcal Vaccination: No - Social History Hx Tobacco Use: No Hx Alcohol Use: Yes - Rarely Hx Substance Use: No Hx Substance Use Treatment: No Hx Depression: No Hx Physical Abuse: No Hx Emotional Abuse: No - Activities of Daily Living Hospice Agency (if applicable):: None - Female History Patient : No Family Medical History - Family History Mother Family History: Unknown Living Status: Unknown Hx Family Cancer: Yes Father Family History: Unknown Living Status: Cause of : Cancer Physical Exam - Physical Exam General Appearance: Alert, Comfortable Eye Exam: bilateral normal Ears, Nose, Throat: normal pharynx, other - Bilateral mild serous OM Neck: non-tender, full range of motion, other - No JVD Respiratory: chest non-tender, lungs clear Cardiovascular/Chest: regular rate, rhythm Gastrointestinal/Abdominal: normal bowel sounds, non tender, soft Back Exam: normal inspection, no CVA tenderness Extremity: normal range of motion, non-tender, no pedal edema Neurologic: no motor/sensory deficits, other Skin Exam: normal color, warm/dry Lymphatic: no adenopathy Progress - Progress Progress: 11/19/20 12:59 CTA Neg for PE, + for multiple infiltrates c/e pneumonia. VS not suggestive of need for admission. Expained all findings to pt, amenable to discharge. Rx steroids and Azithromycin. 11/19/20 14:40 Disposition of patient discussed with Dr. Sargent, PCP while pt in ED. Patient felt better after IV infusion NS 1L - Results/Orders Results/Orders: 11/19/20 09:32 Telemetry .CONTINUOUS 11/19/20 09:42 BLOOD CULTURE Stat 11/19/20 09:45 EKG STAT 11/19/20 09:56 Chest,1 View [RAD] Stat 11/19/20 11:04 Sodium Chloride 0.9% 1000ML [Ns 1000 ml] 1,000 ml IVS ONCE 11/19/20 11:23 CTA Chest [CT] Stat Laboratory Results - last 24 hr 11/19/20 11/19/20 11/19/20 09:42 09:42 09:42 WBC 10.1 RBC 4.33 L Hgb 12.5 L Hct 37.6 L MCV 86.8 MCH 28.8 MCHC 33.2 RDW 14.8 H Plt Count 287 MPV 8.2 Absolute Neuts (auto) 8.60 H Absolute Lymphs (auto) 0.40 L Absolute Monos (auto) 1.00 H Absolute Eos (auto) 0.00 Absolute Basos (auto) 0.00 Neutrophils % 85.5 H Lymphocytes % 4.3 L Monocytes % 9.7 H Eosinophils % 0.2 L Basophils % 0.3 PT 11.3 H INR 1.14 PTT (SP) 28.4 D-Dimer, Quantitative 2360.0 H* Sodium 136 Potassium 3.6 Chloride 104 Carbon Dioxide 21 Anion Gap 14.6 BUN 28 H Creatinine 1.30 BUN/Creatinine Ratio 21.5 H Random Glucose 158 H Serum Osmolality 280.7 Calcium 8.0 L Magnesium 2.2 Total Bilirubin 1.4 H AST 109 H ALT 112 H Alkaline Phosphatase 65 LD Total 277 H D Creatine Kinase 38 CK-MB (CK-2) 2.5 CK-MB (CK-2) % Not Reportable Troponin I 0.03 C-Reactive Protein 16.6 H* B-Natriuretic Peptide 144.0 H Serum Total Protein 6.6 Albumin 2.7 L Globulin 3.9 H Albumin/Globulin Ratio 0.7 L Vital Signs - 24 hr 11/19/20 09:20 Temperature 98.4 F Pulse Rate [ 65 pulse ox] Respiratory 20 Rate Blood Pressure 129/64 [Left Arm] O2 Sat by Pulse 93 L Oximetry No CXR report but densities BLL. D-dimer very. CTA chest ordered. Explained all findings to patient. IV NS 1L bolus ordered. - EKG/XRAY/CT EKG: Sinus, RBBB Comments: NO S-T elv or depression Departure - Departure Clinical Impression: Dizziness, Dehydration, COVID-19 Dyspnea Qualifiers: Dyspnea type: dyspnea on exertion Qualified Code(s): R06.00 - Dyspnea, unspecified Pneumonia Qualifiers: Pneumonia type: due to unspecified organism Laterality: bilateral Lung location: unspecified part of lung Qualified Code(s): J18.9 - Pneumonia, unspecified organism Disposition: Discharge to Home or Self Care Condition: Good Departure Forms: ED Discharge - Pt. Copy, Patient Portal Self Enrollment Instructions: Pneumonia in Adults, Dehydration, Adult (DC), Dizziness, Adult ED Diet: other - Force Fluids to improve hydration Referrals: Pernell Sargent MD [Primary Care Provider] - 1-2 Weeks Prescriptions: Meclizine HCl [Meclizine 25] 25 mg PO Q8HR PRN 10 Days #30 tab MDD 75 mg PRN Reason: Dizziness Prednisone 20 mg PO DAILY 5 Days #15 tab MDD 60mg Azithromycin [Zithromax Z-Dung] 250 mg PO DAILY 5 Days #6 tab MDD 500 Home Medications: Ambulatory Orders Atorvastatin Calcium [Lipitor] 40 mg PO BEDTIME 02/28/15 Enalapril Maleate 20 mg PO BID 02/28/15 Finasteride 5 mg PO DAILY 02/28/15 Aspirin [Aspirin EC] 81 mg PO DAILY 09/25/15 Meloxicam [Mobic] 15 mg PO DAILYBK 09/25/15 Amlodipine Besylate 10 mg PO DAILY 03/17/20 Carvedilol [Coreg] 12.5 mg PO BID 03/17/20 Famotidine [Pepcid] 20 mg PO BID 03/17/20 Fluticasone Propionate (Nasal) [Fluticasone Propionate] 1 spray NA BEDTIME 03/17/20 Isosorbide Mononitrate [Isosorbide Mononitrate ER] 30 mg PO DAILY 03/17/20 Methylprednisolone [Medrol Dose Dung] 4 mg PO ACBK 03/17/20 Methylprednisolone [Medrol Dose Dung] 8 mg PO ONCE 03/17/20 Spironolactone 25 mg PO DAILY 03/17/20 hydrALAZINE HCl [HydrALAzine HCl] 50 mg PO BID 03/17/20 Clopidogrel Bisulfate [Plavix] 75 mg PO QD #30 tab 03/18/20 Ondansetron Odt [Zofran ODT] 8 mg PO Q8H PRN 5 Days #10 tab 06/30/20 Azithromycin [Zithromax Z-Dung] 250 mg PO DAILY 5 Days #6 tab MDD 500 11/19/20 Meclizine HCl [Meclizine 25] 25 mg PO Q8HR PRN 10 Days #30 tab MDD 75 mg 11/19/20 Prednisone 20 mg PO DAILY 5 Days #15 tab MDD 60mg 11/19/20
[2020-11-19] MEDS ORDERED: SODIUM CHLORIDE 0.9% 1000ML 1,000 ML IVS ONE (11:04)
--- NOTE | 2020-11-19 11:39 | RAD ---
EXAM DESCRIPTION: Chest,1 View CLINICAL HISTORY: 79 years Male, + Covid, SOB COMPARISON: Chest radiograph 06/30/2020 TECHNIQUE: Single view radiograph of the chest. IMPRESSION: Enlarged cardiac silhouette. Partially calcified aorta. Left greater than right patchy airspace opacities with peripheral predominance. This probably represents viral pneumonia given the patient's history. No pleural effusion or pneumothorax. Thoracic spondylosis. Electronically signed by: Wayne Hanks MD 11/19/2020 11:38 AM WELDER
--- NOTE | 2020-11-19 12:37 | CT ---
EXAM DESCRIPTION: CTA Chest CLINICAL HISTORY: 79 years Male, SOB, + COVID, very high d-dimer COMPARISON: Chest radiograph 11/19/2020. CT chest 09/25/2015. TECHNIQUE: CT images through the thorax with IV contrast using PE protocol. Multiplanar reformations provided. This examination was performed according to a CT angiographic (CTA) protocol with 3D post-processing. This involves 3D reconstructions, MIPS, volume rendered images and/or shaded surface rendering. This exam was performed according to our departmental dose-optimization program, which includes automated exposure control, adjustment of the mA and/or kV according to patient size and/or use of iterative reconstruction technique. CT CHEST PE FINDINGS: Pulmonary arteries and vascular: Diagnostic quality bolus. No filling defects. Mild atherosclerosis. Nondilated main pulmonary arterial trunk. Heart and mediastinum: Enlarged heart. No pericardial effusion. Unremarkable as scattered mediastinal lymph nodes and right greater than left hilar lymph nodes measure up to 14 mm short axis right hilum and 11 mm subcarinal mediastinum. These may be reactive. Thyroid Gland: Normal. Lungs: Diffuse patchy glass opacities throughout the lungs. Airways: Normal. Pleura: Trace bilateral pleural effusions. Musculoskeletal and Soft Tissues: No acute fracture or aggressive appearing osseous lesion. Chronic right rib fracture. Soft tissues unremarkable. Subphrenic Structures: Punctate calcified granulomas within spleen and liver. IMPRESSION: 1. No pulmonary embolus. 2. Multifocal pneumonia versus viral infection. 3. Probably reactive mediastinal and hilar adenopathy. Electronically signed by: Wayne Hanks MD 11/19/2020 12:35 PM REAL TIME OPERATOR
[2020-11-19 14:15] VITALS: BP 125/68; TEMP 98.1; O2SAT 94
== END 2020-11-19 14:03 | disposition home or self-care (01) ==
LOC: ER 09:15
DX: U07.1 COVID-19 (principal); J12.82 Pneumonia due to coronavirus disease 2019; E86.0 Dehydration; R42 Dizziness and giddiness; H65.93 Unspecified nonsuppurative otitis media, bilateral; I50.9 Heart failure, unspecified; I11.0 Hypertensive heart disease with heart failure; I51.9 Heart disease, unspecified; Z79.899 Other long term (current) drug therapy; Z79.82 Long term (current) use of aspirin; Z88.5 Allergy status to narcotic agent
CPT/HCPCS: 36415; 71045; 71275; 80053; 82550; 82553; 83615; 83735; 83880; 84484; 85025; 85379; 85610; 85730; 86140; 87040; 93005; J7030